=== PATIENT | female | born 1930 | race Caucasian/White ===

== ENCOUNTER 2021-07-30 13:00 | Outpatient (CLI) | payer MEDICARE | END 2021-07-30 13:01 | disposition home or self-care (01) | LOC: BICMAMMO 13:00 | PROVIDERS: ATTEND Family Medicine | DX: Z12.31 Encounter for screening mammogram for malignant neoplasm of breast (principal); Z13.820 Encounter for screening for osteoporosis; E55.9 Vitamin D deficiency, unspecified; R05.9 Cough, unspecified; M85.851 Other specified disorders of bone density and structure, right thigh; M85.852 Other specified disorders of bone density and structure, left thigh; Z80.3 Family history of malignant neoplasm of breast | CPT/HCPCS: 71046; 77063; 77067; 77080 ==